=== PATIENT | male | born 1955 | race Caucasian/White ===

== ENCOUNTER 2020-01-08 20:56 | Inpatient (IN) | payer OTHER ==
[~2020-01-08] VITALS: Ht 188 cm; Wt 113.4 kg
[2020-01-08] MEDS ORDERED: LOSARTAN POTASS50 MG PO (21:16)
[2020-01-08] MEDS ORDERED: HUMALOG MI100 UNIT/1 SQ (21:16)
--- NOTE | 2020-01-08 21:17 | NUR ---
SE RECIBE PACIENTE ALERTA, ORIENTADA X 3 ESFERAS REFIERE TENER DDLOR ABDOMINAL DESDE EL BAR Y ,MALESTAR GENERALIZADO SE UBICA EN AREA DE OBSERVACION PARA EVALUACION MEDICA.
--- NOTE | 2020-01-08 22:09 | NUR ---
SE ORIENTA PTE SOBRE TX MEDICO EL CUAL REFIERE ENTENDER.SE LE EXTRAEN MUESTRAS BAJO MEDIDAS ASEPTICAS,SE CANALIZA Y SE ADMINISTRAN MEDICAMENTOS TITI ORDEN MEDICA.SE NOTIFICA CT PENDIENTE Y SE ENTREGA CONTRASTE.
--- NOTE | 2020-01-08 23:22 | NUR ---
SE RECIBE PTE ALERTA Y ORIENTADO X3 ACOMPANADO DE FAMILIAR EN STEPHANIE CON BARANDAS ELEVADAS. PTE CON H/L EL CUAL SE ENCUENTRA PATENTE Y MAGDA DE EDEMA. PTE CON IV FLUIDS COLOCADO. PTE PENDIENTE A LECTURA DE CT PENDIENTE. PTE SE CONTINUA MONITORIANDO POR CAMBIOS.
--- NOTE | 2020-01-09 07:24 | NUR ---
SE RECIBE PTE EL CUAL SE ENCUENTRA CON AREA DE VENOPUNCION PATENTE Y MAGDA DE EDEMA CON IV FLUID BAJANDO AT 0.9NSS AT 150 ML/HR. EL MISMO SE ENCUENTRA PEND A REALIZAR SONOGRAMA ABDOMINAL PEND Y CONSULTA CON DR. CROSS
[2020-01-16] MEDS ORDERED: LEVSIN0.125 MG PO (13:08)
== END 2020-01-16 13:56 | disposition home or self-care (01) | DRG 446 ==
LOC: ER 20:56 → SURG 01-09 09:11 → SEC-K 01-09 09:11 → SURG 01-10 02:39
PROVIDERS: ADMIT Internal Medicine; ATTEND Internal Medicine
PROC: BF37ZZZ Magnetic Resonance Imaging (MRI) of Pancreas (ICD-10-PCS; principal; 2020-01-09)
PROC: BW21ZZZ Computerized Tomography (CT Scan) of Abdomen and Pelvis (ICD-10-PCS; 2020-01-09)
PROC: BW40ZZZ Ultrasonography of Abdomen (ICD-10-PCS; 2020-01-09)
PROC: 02HV33Z Insertion of Infusion Device into Superior Vena Cava, Percutaneous Approach (ICD-10-PCS; 2020-01-12)
DX: K80.00 Calculus of gallbladder with acute cholecystitis without obstruction (principal); E11.9 Type 2 diabetes mellitus without complications; D69.6 Thrombocytopenia, unspecified; I10 Essential (primary) hypertension; E78.49 Other hyperlipidemia; E80.6 Other disorders of bilirubin metabolism; Z79.4 Long term (current) use of insulin

== ENCOUNTER 2020-01-25 13:18 | Outpatient (CLI) | payer OTHER ==
[~2020-01-25 13:18] MED LIST: HUMALOG MI100 UNIT/1 SQ; LEVSIN0.125 MG PO; LOSARTAN POTASS50 MG PO
== END 2020-01-25 13:36 | disposition home or self-care (01) ==
LOC: NUCLEAR 13:18
PROVIDERS: ATTEND Internal Medicine
DX: K76.89 Other specified diseases of liver (principal)
CPT/HCPCS: 78215; A9541